=== PATIENT | female | born 1980 | race Caucasian/White ===

== ENCOUNTER 2016-03-11 12:10 | Emergency (ER) | payer OTHER ==
[~2016-03-11 12:10] MED LIST: ACET50TA PO; ADDE10CA3 PO; ADDE10TA OR; ALLE25CA OR; CETI10TA OR; DIAB5TAB PO; DOCU10CA PO; GLUC500T OR; GLUC850T PO; GLYB5TA PO; IBUP80TA PO; NEXI20CA PO; NUPE1OIN2 PN; PERC5TAB8 OR; PERCOCET PO; PRENTAB55 PO; VICO5TAB OR; VITAPRTA PO; ZOFR8TAB PO; augmentin PO
[2016-03-11] MEDS ORDERED: ONDANSETRON 4 MG ORAL DISINTEGRATING TAB (S0181) As Ordered ONE (12:54)
[2016-03-11] MEDS ORDERED: METOCLOPRAMIDE INJ 10MG/2ML VIAL (J2765) As Ordered ONE (14:13)
--- NOTE | 2016-03-11 15:00 | EDDOCDS ---
Nurse's Notes [facility] Name: Richa Sanders Age: 35 yrs Sex: Female : 1980 Arrival Date: 03/11/2016 Time: 12:10 Bed Family 1 Private MD: BASSAM Cobos Diagnosis: Infectious gastroenteritis and colitis, unspecified Presentation: 03/11 12:21 Presenting complaint: Patient states: she has had nausea, vomiting, diarrhea and kcs cramping since 0300. Adult Sepsis Screening: The patient does not have new or worsening altered mentation. Patient's respiratory rate is less than 22. Systolic blood pressure is greater than 100. Patient has a qSOFA score of 0- Negative Sepsis Screen. Suicide/Homicide risk assessment- the patient denies having any suicidal and/or homicidal ideations and does not present with any other emotional, behavioral or mental health complaints. 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 Transition of care: patient was not received from another setting of care. 12:21 Acuity: WILLIAM Level 3 kcs 12:21 Method Of Arrival: Walkin/Carried/Asstd kcs Triage Assessment: 12:24 General: Appears comfortable, well developed, well nourished, well groomed, Behavior is kcs cooperative, pleasant. Pain: Location: abdomen Pain currently is 5 out of 10 on a pain scale. Pt Declines HIV testing. Neurological: Level of Consciousness is awake, alert. Respiratory: Airway is patent Respiratory effort is even, unlabored, Respiratory pattern is regular, symmetrical. Derm: Skin is intact, is healthy with good turgor, Skin is dry, Skin is normal. 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 omeprazole 20 mg Oral cpDR 1 cap once daily 2. Zyrtec 10 mg Oral tab 1 tab once daily 3. Adderall XR 20 mg Oral cp24 1 cap once daily doesn't take it every day 4. Albuterol Inhl 2 puffs every 4 hours as needed - PMHx: GERD; ADD; Asthma; Seasonal Allergies; - PSHx: Cholecystectomy; - Social history: Smoking status: Patient states was never smoker of tobacco. No barriers to communication noted, The patient speaks fluent Urdu. - Family history: Not pertinent. - : The pt / caregiver states he / she is not on anticoagulants. Home medication list is obtained from the patient. - Exposure Risk Screening:: None identified. Recent exposure to and child are sick. Screenin:11 Infection Control. elp 13:00 Screening information is obtained from the patient. Fall risk: No risks identified. mk4 Assistance ADL's: requires no assistance with activities of daily living. Abuse/DV Screen: The patient / caregiver reports he/she is: not in a situation that causes fear, pain or injury. Nutritional screening: No deficits noted. Advance Directives: Currently, there is no health care proxy. There is no active DNR order. There is no living will. There is no Power of Cathode Ray Tube Assembler. Advance directive information has not previously been placed in an [facility] medical record. Further advance directive information is declined. home support is adequate. Assessment: 13:00 General: Appears in no apparent distress, comfortable. GI: Abd is soft and non tender mk4 Reports vomiting, since this am , hasnt vomited since arrival. Derm: Skin is intact, is healthy with good turgor. 14:17 General: Appears ill. Pain: Location: abdomen Quality of pain is described as crampy. mcp GI: Reports nausea. 14:58 General: Tolerated fluids po. [facility] Vital Signs: 12:12 BP 114 / 82; Pulse 117; Resp 20; Temp 98.9; Pulse Ox 95% on R/A; Weight 99.79 kg (R); elp Height 5 ft. 7 in. (170.18 cm) (R); Pain 5/10; 14:55 BP 114 / 59; Pulse 98; Resp 18; Temp 98.3(O); Pulse Ox 96% on R/A; Pain 2/10; jml1 12:12 Body Mass Index 34.46 (99.79 kg, 170.18 cm) [facility] Vitals: 12:12 Log In Time: March 11, 2016 at 12:10. [facility] ED Course: 12:11 Patient visited by Radha Chase PCA. elp 12:11 Chandrika [facility] is Private Physician. elp 12:11 Patient moved to Waiting elp 12:12 Patient visited by Radha Chase PCA. elp 12:13 Patient moved to Pre RCE elp 12:22 Triage Initiated kcs 12:39 Selena Costa MD is Attending Physician. sd1 12:39 Patient visited by Selena Costa MD. sd1 12:39 Patient moved to Family 1 ck1 12:51 Patient visited by Niecy Schrader, MIQUEL. mk4 13:00 The patient / caregiver is instructed regarding the plan of care and ED course. mk4 13:21 Patient visited by Niecy Schrader RN. mk4 13:40 [facility] Payment Agreement was scanned into [employer] and attached to record. jp5 14:12 Patient visited by Niecy Schrader RN. mk4 14:18 Patient visited by Maria Teresa Davis RN. [facility] 14:39 Cobos, [facility] is Referral Physician. sd1 14:56 Patient visited by Cecilio Sahni. jml1 14:57 No IV's were initiated during this patient's visit. No procedures done that require mcp assistance. Administered Medications: 12:59 Drug: Ondansetron ODT 4 mg [ondansetron 4 mg disintegrating tablet (1 tabs)] Route: PO; mk4 14:17 Drug: Metoclopramide 10 mg [metoclopramide 5 mg/mL injection solution (2 mL)] Route: mcp IM; Site: right deltoid; Order Results: There are currently no results for this order. Outcome: 14:39 Discharge ordered by Provider. sd1 14:58 Discharge Assessment: patient administered narcotics - no. The following High Risk [facility] Discharge criteria are identified: None. Discharged to home ambulatory, with family. Condition: stable. Discharge instructions given to patient, Instructed on discharge instructions, follow up and referral plans. medication usage, diet, Demonstrated understanding of instructions, medications, Pt was receptive of discharge instructions/ teaching. Prescriptions given X 1. No special radiology studies were completed. Property sent home with patient. 14:59 Patient left the ED. [facility] Signatures: Selena Costa MD MD sd1 Krista Guadarrama RN RN kcs Peters, Mary, RN RN mcp Kim-Ashcraft, Connie, RN RN ck1 Cecilio Sahni jml1 Patchen, Radha, FOOD MIXER REPAIRER FOOD MIXER REPAIRER elp Niecy Schrader, MIQUEL RN [id number] Segun Araujo jp5 MTDD
--- NOTE | 2016-03-11 15:00 | EDDOCDS ---
Physician Documentation [facility] Name: Richa Sanders Age: 35 yrs Sex: Female : 1980 Arrival Date: 03/11/2016 Time: 12:10 Bed Family 1 Private MD: BASSAM Cobos Disposition: 03/11/16 14:39 Discharged to Home/Self Care. Impression: Infectious gastroenteritis and colitis, unspecified. - Condition is Stable. - Discharge Instructions: Food Choices to Help Relieve Diarrhea, Adult, Clear Liquid Diet, Viral Gastroenteritis, Viral Gastroenteritis, [id number]. - Prescriptions for ZOFRAN ODT 4 mg - dissolve 1 tablet by ORAL route 4 times per day As needed do not chew, do not swallow whole; 10 tablet. - Medication Reconciliation, Local Pharmacy Hours form. - Follow up: BASSAM Cobos; When: 1 - 2 days. - Problem is new. - Symptoms have improved. Historical: - Allergies: No known drug Allergies; - Home Meds: 1. omeprazole 20 mg Oral cpDR 1 cap once daily 2. Zyrtec 10 mg Oral tab 1 tab once daily 3. Adderall XR 20 mg Oral cp24 1 cap once daily doesn't take it every day 4. Albuterol Inhl 2 puffs every 4 hours as needed - PMHx: GERD; ADD; Asthma; Seasonal Allergies; - PSHx: Cholecystectomy; - Social history: Smoking status: Patient states was never smoker of tobacco. No barriers to communication noted, The patient speaks fluent Spanish. - Family history: Not pertinent. - : The pt / caregiver states he / she is not on anticoagulants. Home medication list is obtained from the patient. - Exposure Risk Screening:: None identified. Recent exposure to and child are sick. 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 7 in. (170.18 cm) (R); Pain 5/10; 14:55 BP 114 / 59; Pulse 98; Resp 18; Temp 98.3(O); Pulse Ox 96% on R/A; Pain 2/10; jml1 12:12 Body Mass Index 34.46 (99.79 kg, 170.18 cm) elp MDM: 12:50 Ondansetron ODT Oral Disintegrating Tablet 4 mg PO once ordered. sd1 12:50 Fluid Challenge ordered. sd1 13:40 [facility] Payment Agreement was scanned into [employer] and attached to record. jp5 13:40 Financial registration complete. jp5 14:05 Metoclopramide 10 mg IM once ordered. sd1 Administered Medications: 12:59 Drug: Ondansetron ODT 4 mg [ondansetron 4 mg disintegrating tablet (1 tabs)] Route: PO; mk4 14:17 Drug: Metoclopramide 10 mg [metoclopramide 5 mg/mL injection solution (2 mL)] Route: mcp IM; Site: right deltoid; Signatures: Selena Costa MD MD sd1 Krista Guadarrama RN Maria Teresa Rios RN RN [facility] Niecy Schrader RN RN 4 Segun Araujo jp5 The chart was reviewed and I authenticate all verbal orders and agree with the evaluation and treatment provided.Attachments: 13:40 [facility] Payment Agreement jp5 MTDD
--- NOTE | 2016-03-13 16:00 | EDDOCDS ---
Physician Documentation [facility] Name: Richa Sanders Age: 35 yrs Sex: Female : 1980 Arrival Date: 03/11/2016 Time: 12:10 Bed Family 1 Private MD: BASSAM Cobos Disposition: 03/11/16 14:39 Discharged to Home/Self Care. Impression: Infectious gastroenteritis and colitis, unspecified. - Condition is Stable. - Discharge Instructions: Food Choices to Help Relieve Diarrhea, Adult, Clear Liquid Diet, Viral Gastroenteritis, Viral Gastroenteritis, [id number]. - Prescriptions for ZOFRAN ODT 4 mg - dissolve 1 tablet by ORAL route 4 times per day As needed do not chew, do not swallow whole; 10 tablet. - Medication Reconciliation, Local Pharmacy Hours form. - Follow up: BASSAM Cobos; When: 1 - 2 days. - Problem is new. - Symptoms have improved. Historical: - Allergies: No known drug Allergies; - Home Meds: 1. omeprazole 20 mg Oral cpDR 1 cap once daily 2. Zyrtec 10 mg Oral tab 1 tab once daily 3. Adderall XR 20 mg Oral cp24 1 cap once daily doesn't take it every day 4. Albuterol Inhl 2 puffs every 4 hours as needed - PMHx: GERD; ADD; Asthma; Seasonal Allergies; - PSHx: Cholecystectomy; - Social history: Smoking status: Patient states was never smoker of tobacco. No barriers to communication noted, The patient speaks fluent Swedish. - Family history: Not pertinent. - : The pt / caregiver states he / she is not on anticoagulants. Home medication list is obtained from the patient. - Exposure Risk Screening:: None identified. Recent exposure to and child are sick. 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 7 in. (170.18 cm) (R); Pain 5/10; 14:55 BP 114 / 59; Pulse 98; Resp 18; Temp 98.3(O); Pulse Ox 96% on R/A; Pain 2/10; jml1 12:12 Body Mass Index 34.46 (99.79 kg, 170.18 cm) elp MDM: 12:50 Ondansetron ODT Oral Disintegrating Tablet 4 mg PO once ordered. sd1 12:50 Fluid Challenge ordered. sd1 13:40 [facility] Payment Agreement was scanned into [employer] and attached to record. jp5 13:40 Financial registration complete. jp5 14:05 Metoclopramide 10 mg IM once ordered. sd1 03/12 09:21 T-Sheet-- Draft Copy was scanned into [employer] and attached to record. gb Administered Medications: 03/11 12:59 Drug: Ondansetron ODT 4 mg [ondansetron 4 mg disintegrating tablet (1 tabs)] Route: PO; mk4 14:17 Drug: Metoclopramide 10 mg [metoclopramide 5 mg/mL injection solution (2 mL)] Route: mcp IM; Site: right deltoid; Signatures: Selena Costa MD MD sd1 Krista Guadarrama RN RN Maria Teresa Guerrier RN RN Yadi Bose, Reg Reg Niecy Rehman, RN RN mk4 Segun Araujo jp5 The chart was reviewed and I authenticate all verbal orders and agree with the evaluation and treatment provided.Attachments: 13:40 [facility] Payment Agreement jp5 03/12 09:21 T-Sheet-- Draft Copy gb Chart Complete MTDD
--- NOTE | 2016-03-13 16:00 | EDDOCDS ---
Nurse's Notes [facility] Name: Richa Sanders Age: 35 yrs Sex: Female : 1980 Arrival Date: 03/11/2016 Time: 12:10 Bed Family 1 Private MD: BASSAM Cobos Diagnosis: Infectious gastroenteritis and colitis, unspecified Presentation: 03/11 12:21 Presenting complaint: Patient states: she has had nausea, vomiting, diarrhea and kcs cramping since 0300. Adult Sepsis Screening: The patient does not have new or worsening altered mentation. Patient's respiratory rate is less than 22. Systolic blood pressure is greater than 100. Patient has a qSOFA score of 0- Negative Sepsis Screen. Suicide/Homicide risk assessment- the patient denies having any suicidal and/or homicidal ideations and does not present with any other emotional, behavioral or mental health complaints. 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 Transition of care: patient was not received from another setting of care. 12:21 Acuity: WILLIAM Level 3 kcs 12:21 Method Of Arrival: Walkin/Carried/Asstd kcs Triage Assessment: 12:24 General: Appears comfortable, well developed, well nourished, well groomed, Behavior is kcs cooperative, pleasant. Pain: Location: abdomen Pain currently is 5 out of 10 on a pain scale. Pt Declines HIV testing. Neurological: Level of Consciousness is awake, alert. Respiratory: Airway is patent Respiratory effort is even, unlabored, Respiratory pattern is regular, symmetrical. Derm: Skin is intact, is healthy with good turgor, Skin is dry, Skin is normal. 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 omeprazole 20 mg Oral cpDR 1 cap once daily 2. Zyrtec 10 mg Oral tab 1 tab once daily 3. Adderall XR 20 mg Oral cp24 1 cap once daily doesn't take it every day 4. Albuterol Inhl 2 puffs every 4 hours as needed - PMHx: GERD; ADD; Asthma; Seasonal Allergies; - PSHx: Cholecystectomy; - Social history: Smoking status: Patient states was never smoker of tobacco. No barriers to communication noted, The patient speaks fluent Kinyarwanda. - Family history: Not pertinent. - : The pt / caregiver states he / she is not on anticoagulants. Home medication list is obtained from the patient. - Exposure Risk Screening:: None identified. Recent exposure to and child are sick. Screenin:11 Infection Control. elp 13:00 Screening information is obtained from the patient. Fall risk: No risks identified. mk4 Assistance ADL's: requires no assistance with activities of daily living. Abuse/DV Screen: The patient / caregiver reports he/she is: not in a situation that causes fear, pain or injury. Nutritional screening: No deficits noted. Advance Directives: Currently, there is no health care proxy. There is no active DNR order. There is no living will. There is no Power of Communications Advisor. Advance directive information has not previously been placed in an [facility] medical record. Further advance directive information is declined. home support is adequate. Assessment: 13:00 General: Appears in no apparent distress, comfortable. GI: Abd is soft and non tender mk4 Reports vomiting, since this am , hasnt vomited since arrival. Derm: Skin is intact, is healthy with good turgor. 14:17 General: Appears ill. Pain: Location: abdomen Quality of pain is described as crampy. mcp GI: Reports nausea. 14:58 General: Tolerated fluids po. [facility] Vital Signs: 12:12 BP 114 / 82; Pulse 117; Resp 20; Temp 98.9; Pulse Ox 95% on R/A; Weight 99.79 kg (R); elp Height 5 ft. 7 in. (170.18 cm) (R); Pain 5/10; 14:55 BP 114 / 59; Pulse 98; Resp 18; Temp 98.3(O); Pulse Ox 96% on R/A; Pain 2/10; jml1 12:12 Body Mass Index 34.46 (99.79 kg, 170.18 cm) [facility] Vitals: 12:12 Log In Time: March 11, 2016 at 12:10. [facility] ED Course: 12:11 Patient visited by Radha Chase PCA. elp 12:11 Chandrika [facility] is Private Physician. elp 12:11 Patient moved to Waiting elp 12:12 Patient visited by Radha Chase PCA. elp 12:13 Patient moved to Pre RCE elp 12:22 Triage Initiated kcs 12:39 Selena Costa MD is Attending Physician. sd1 12:39 Patient visited by Selena Costa MD. sd1 12:39 Patient moved to Family 1 ck1 12:51 Patient visited by Niecy Schrader RN. mk4 13:00 The patient / caregiver is instructed regarding the plan of care and ED course. mk4 13:21 Patient visited by Niecy Schrader RN. mk4 13:40 [facility] Payment Agreement was scanned into [employer] and attached to record. jp5 14:12 Patient visited by Niecy Schrader RN. mk4 14:18 Patient visited by Maria Teresa Davis RN. [facility] 14:39 Chandrika [facility] is Referral Physician. sd1 14:56 Patient visited by Cecilio Sahni. jml1 14:57 No IV's were initiated during this patient's visit. No procedures done that require mcp assistance. 03/12 09:21 T-Sheet-- Draft Copy was scanned into [employer] and attached to record. gb Administered Medications: 03/11 12:59 Drug: Ondansetron ODT 4 mg [ondansetron 4 mg disintegrating tablet (1 tabs)] Route: PO; mk4 14:17 Drug: Metoclopramide 10 mg [metoclopramide 5 mg/mL injection solution (2 mL)] Route: mcp IM; Site: right deltoid; Order Results: There are currently no results for this order. Outcome: 14:39 Discharge ordered by Provider. sd1 14:58 Discharge Assessment: patient administered narcotics - no. The following High Risk [facility] Discharge criteria are identified: None. Discharged to home ambulatory, with family. Condition: stable. Discharge instructions given to patient, Instructed on discharge instructions, follow up and referral plans. medication usage, diet, Demonstrated understanding of instructions, medications, Pt was receptive of discharge instructions/ teaching. Prescriptions given X 1. No special radiology studies were completed. Property sent home with patient. 14:59 Patient left the ED. [facility] Signatures: Selena Costa MD MD sd1 Krista Guadarrama RN RN kcs Peters, Mary, RN RN [facility] Yadi Hernández, Reg Reg kaitlynn Moore,MIQUEL Saenz RN ck1 Cecilio Sahni jml1 Radha Chase, BORE MILL OPERATOR BORE MILL OPERATOR elp Niecy Schrader, RN RN mk4 Segun Araujo jp5 Chart Complete MTDD
--- NOTE | 2016-03-13 16:00 | EDDOCDS ---
Physician Documentation [facility] Name: Richa Sanders Age: 35 yrs Sex: Female : 1980 Arrival Date: 03/11/2016 Time: 12:10 Bed Family 1 Private MD: BASSAM Cobos Disposition: 03/11/16 14:39 Discharged to Home/Self Care. Impression: Infectious gastroenteritis and colitis, unspecified. - Condition is Stable. - Discharge Instructions: Food Choices to Help Relieve Diarrhea, Adult, Clear Liquid Diet, Viral Gastroenteritis, Viral Gastroenteritis, [id number]. - Prescriptions for ZOFRAN ODT 4 mg - dissolve 1 tablet by ORAL route 4 times per day As needed do not chew, do not swallow whole; 10 tablet. - Medication Reconciliation, Local Pharmacy Hours form. - Follow up: BASSAM Cobos; When: 1 - 2 days. - Problem is new. - Symptoms have improved. Historical: - Allergies: No known drug Allergies; - Home Meds: 1. omeprazole 20 mg Oral cpDR 1 cap once daily 2. Zyrtec 10 mg Oral tab 1 tab once daily 3. Adderall XR 20 mg Oral cp24 1 cap once daily doesn't take it every day 4. Albuterol Inhl 2 puffs every 4 hours as needed - PMHx: GERD; ADD; Asthma; Seasonal Allergies; - PSHx: Cholecystectomy; - Social history: Smoking status: Patient states was never smoker of tobacco. No barriers to communication noted, The patient speaks fluent Yakut. - Family history: Not pertinent. - : The pt / caregiver states he / she is not on anticoagulants. Home medication list is obtained from the patient. - Exposure Risk Screening:: None identified. Recent exposure to and child are sick. 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 7 in. (170.18 cm) (R); Pain 5/10; 14:55 BP 114 / 59; Pulse 98; Resp 18; Temp 98.3(O); Pulse Ox 96% on R/A; Pain 2/10; jml1 12:12 Body Mass Index 34.46 (99.79 kg, 170.18 cm) elp MDM: 12:50 Ondansetron ODT Oral Disintegrating Tablet 4 mg PO once ordered. sd1 12:50 Fluid Challenge ordered. sd1 13:40 [facility] Payment Agreement was scanned into [employer] and attached to record. jp5 13:40 Financial registration complete. jp5 14:05 Metoclopramide 10 mg IM once ordered. sd1 03/12 09:21 T-Sheet-- Draft Copy was scanned into [employer] and attached to record. gb Administered Medications: 03/11 12:59 Drug: Ondansetron ODT 4 mg [ondansetron 4 mg disintegrating tablet (1 tabs)] Route: PO; mk4 14:17 Drug: Metoclopramide 10 mg [metoclopramide 5 mg/mL injection solution (2 mL)] Route: mcp IM; Site: right deltoid; Signatures: Selena Costa MD MD sd1 Krista Guadarrama RN RN Maria Teresa Guerrier RN RN Yadi Bose, Reg Reg Niecy Rehman, RN RN mk4 Segun Araujo jp5 The chart was reviewed and I authenticate all verbal orders and agree with the evaluation and treatment provided.Attachments: 13:40 [facility] Payment Agreement jp5 03/12 09:21 T-Sheet-- Draft Copy gb Chart Complete MTDD
== END 2016-03-11 14:59 | disposition home or self-care (01) ==
LOC: M ED 12:10
DX: R11.2 Nausea with vomiting, unspecified (principal); R19.7 Diarrhea, unspecified; K21.9 Gastro-esophageal reflux disease without esophagitis; F90.0 Attention-deficit hyperactivity disorder, predominantly inattentive type; J45.909 Unspecified asthma, uncomplicated; Z90.49 Acquired absence of other specified parts of digestive tract; Z79.899 Other long term (current) drug therapy
CPT/HCPCS: 96372; 99283; J2765

== ENCOUNTER → 2016-06-01 | Outpatient (CLI) | payer OTHER, SELFPAY ==
[~2016-06-01] MED LIST changes: +METHACHOLINE KIT (J7674) INH ONE
--- NOTE | 2016-06-01 09:35 | PFTRPT ---
METHACHOLINE CHALLENGE REPORT: ORDERING PROVIDER: JAEL Ruiz DATE OF SERVICE: 06/01/16 INTERPRETATION: The study was of excellent technical quality. Under protocol, methacholine was administered. At a dose of 0.025 mg (0.125 CDUs), a 50% decline in the FEV1 was noted. Flow rates did return to baseline post bronchodilator administration. IMPRESSION: Positive methacholine challenge study. MTDD
== END ==
LOC: M CARPUL 08:53
PROVIDERS: ATTEND Nurse Practitioner Adult Health
DX: R05 Cough (principal); R94.2 Abnormal results of pulmonary function studies

== ENCOUNTER → 2016-06-17 | Outpatient (CLI) | payer OTHER ==
[~2016-06-17] MED LIST changes: -METHACHOLINE KIT (J7674) INH ONE
--- NOTE | 2016-06-18 03:00 | REP ---
Clinical: Shortness of breath . Comparison: 01/19/2014 . Technique: PA and lateral. Findings: The mediastinum and cardiac silhouette are normal. The lung batista are clear and without acute consolidation, effusion, or pneumothorax. The skeletal structures are intact and normal. Impression: 1. No acute cardiopulmonary process. Signed by Jv Yao MD 06/18/2016 02:52 A
== END ==
LOC: M RAD 12:59
PROVIDERS: ATTEND Nurse Practitioner Adult Health
DX: R06.02 Shortness of breath (principal)

== ENCOUNTER → 2016-09-24 | Outpatient (CLI) | payer OTHER ==
--- NOTE | 2016-09-24 17:58 | REP ---
Chest x-ray: Two views: History: Mild intermittent asthma. Comparison chest x-ray: 06/17/2016. Findings: The lungs are well inflated and clear. The pleural angles are sharp. Cardiomediastinal silhouette and bony thorax are unremarkable. Impression: Negative chest x-ray. Signed by Ari Pina MD 09/24/2016 07:39 P
== END ==
LOC: M RAD 15:02 → M LAB 15:02
PROVIDERS: ATTEND Nurse Practitioner Adult Health
DX: J45.20 Mild intermittent asthma, uncomplicated (principal)

== ENCOUNTER 2017-09-11 19:49 | Emergency (ER) | payer OTHER ==
[2017-09-11 20:50] LABS: KETONE, URINE AUTO RFX NEGATIVE (NEGATIVE); LEUKOCYTE ESTERASE UR AUTO RFX NEGATIVE (NEGATIVE); NITRITE, URINE AUTO RFX NEGATIVE (NEGATIVE); RBC, URINE AUTO RFX 0 /HPF (0-3); SPECIFIC GRAVITY UR AUTO RFX 1.006 (1.002-1.035); SQUAM EPITHELIAL CELL UR AURFX 0 /HPF (0-6); WBC, URINE AUTO RFX 0 /HPF (0-3)
[2017-09-11] MEDS: METOCLOPRAMIDE INJ 10MG/2ML VIAL (J2765) IV (20:59)
[2017-09-11] MEDS: NS 1,000 ML IV (20:59)
[2017-09-11 21:06] LABS: HEMATOCRIT 41.3 % (36.0-47.0); MEAN CORPUSCULAR HEMOGLOBIN 29.2 pg (27.0-33.0); MEAN CORPUSCULAR HGB CONC 33.9 g/dl (32.0-36.5); MEAN CORPUSCULAR VOLUME 86.2 fl (80.0-96.0); PLATELET COUNT, AUTOMATED 330 10^3/uL (150-450); RED BLOOD COUNT 4.79 10^6/uL (4.00-5.40); RED CELL DISTRIBUTION WIDTH 13.2 % (11.5-14.5)
[2017-09-11 21:14] LABS: ADD MANUAL DIFFER YES; DIFF SLIDE NUMBER 158; POSITIVE DIFF POS FLAG
[2017-09-11 21:34] LABS: EOSINOPHILS 4 % (0-5); LYMPHOCYTES 32 % (16-52); MONOCYTES 6 % (0-8); NEUTROPHILS 58 % (35-75); PLATELET ESTIMATE NORMAL (NORMAL)
[2017-09-11 21:38] LABS: ANION GAP 10 MEQ/L (8-16); BLOOD UREA NITROGEN 10 MG/DL (7-18); CALCIUM LEVEL 8.6 MG/DL (8.5-10.1); CARBON DIOXIDE LEVEL 23 MEQ/L (21-32); CHLORIDE LEVEL 105 MEQ/L (98-107); CREATININE FOR GFR 1.11 MG/DL (0.55-1.30); GLOMERULAR FILTRATION RATE 58.9 (>60); GLUCOSE, FASTING 171 MG/DL (70-100); HCG, SERUM QUANTITATIVE 41482 MIU/ML; POTASSIUM SERUM 3.6 MEQ/L (3.5-5.1); SODIUM LEVEL 138 MEQ/L (136-145)
== END 2017-09-11 22:17 | disposition home or self-care (01) ==
LOC: M ED 19:49
DX: O24.419 Gestational diabetes mellitus in pregnancy, unspecified control (principal); R73.9 Hyperglycemia, unspecified; O21.9 Vomiting of pregnancy, unspecified; O99.341 Other mental disorders complicating pregnancy, first trimester; F32.9 Major depressive disorder, single episode, unspecified; F41.9 Anxiety disorder, unspecified; O99.611 Diseases of the digestive system complicating pregnancy, first trimester; K21.9 Gastro-esophageal reflux disease without esophagitis; O99.511 Diseases of the respiratory system complicating pregnancy, first trimester; J30.2 Other seasonal allergic rhinitis; Z3A.00 Weeks of gestation of pregnancy not specified
CPT/HCPCS: J2765

== ENCOUNTER → 2017-11-10 | Outpatient (CLI) | payer OTHER | LOC: M EKG 15:27 | DX: O24.112 Pre-existing type 2 diabetes mellitus, in pregnancy, second trimester (principal); E11.9 Type 2 diabetes mellitus without complications; Z3A.14 14 weeks gestation of pregnancy ==

== ENCOUNTER 2018-04-14 14:58 | Inpatient (IN) | payer OTHER ==
[~2018-04-14] VITALS: Ht 170.2 cm; Wt 121.8 kg
[~2018-04-14 14:58] MED LIST changes: -ACET50TA PO; +MAPA500T2 PO; +REGL10TA6 PO
[2018-04-14] MEDS ORDERED: NS 1,000 ML IV SCH (15:15)
[2018-04-14] MEDS ORDERED: LACTATED RINGER'S 1000 ML IV STA (15:15)
[2018-04-14] MEDS ORDERED: INSULIN IV RATE CHANGE DOCUMENTATION ML/HR XX SCH ×2 (15:15→20:15)
[2018-04-14] MEDS ORDERED: LR 1,000 ML IV SCH (15:15)
[2018-04-14 15:16] VITALS: BP 144/77
[2018-04-14] MEDS ORDERED: SING10TA32 PO (15:17)
[2018-04-14] MEDS ORDERED: INSUDET SC (15:17)
[2018-04-14] MEDS ORDERED: CETI10TA PO (15:17)
[2018-04-14] MEDS ORDERED: NOVOINJ3 SUBQ (16:48)
[2018-04-14] MEDS ORDERED: INSULIN HUMAN REGULAR 100 UNITS in NS 99 ML IV SCH ×2 (17:00→20:07)
[2018-04-14 17:08] LABS: HEMATOCRIT 39.4 % (36.0-47.0); HEMOGLOBIN 13.5 g/dl (12.0-15.5); MEAN CORPUSCULAR HEMOGLOBIN 29.9 pg (27.0-33.0); MEAN CORPUSCULAR HGB CONC 34.3 g/dl (32.0-36.5); MEAN CORPUSCULAR VOLUME 87.2 fl (80.0-96.0); PLATELET COUNT, AUTOMATED 248 10^3/uL (150-450); RED BLOOD COUNT 4.52 10^6/uL (4.00-5.40); WHITE BLOOD COUNT 11.5 10^3/uL (4.0-10.0)
[2018-04-14 17:19] VITALS: BP 128/67
[2018-04-14] MEDS ORDERED: ceFAZolin SOD 1 GM in D5W MINI-BAG PLUS 50 ML IV ONE (17:30)
[2018-04-14] MEDS ORDERED: BICITRA 30ML SOLN UDC PO ONE (17:30)
--- NOTE | 2018-04-14 17:33 | REP ---
OB ULTRASOUND: Real-time sonographic evaluation of the gravid uterus is performed utilizing transabdominal technique. There is a single living intrauterine gestation. The estimated gestational age is 38 weeks 1 day. EDC 04/27/2018. Today's measurements demonstrate an estimated weight of 4020 grams which is at the 94th percentile. BPD 93 mm = 37 weeks 6 days, at the 47th percentile. HC 347 mm = 40 weeks 2 days, at the 85th percentile. AC 380 mm = 42 weeks 0 days, over 95th percentile. Femur length 72 mm = 36 weeks 4 days, at the 29th percentile. HC/AC ratio 0.91 within normal range. Cervix is closed and measures approximately 2.6 cm in length. heart rate 135 beats per minute. Amniotic fluid is upper limits of normal, DONOVAN 22.5 with a normal range of 7.3 to 23.8. Biophysical profile score is 8/8. SD ratio is 2.77 is slightly above normal range of 1.6 to 2.6. RI 0.64. Visualized anatomy was the lateral ventricles, upper lip, four-chamber heart, ventricular outflow tracts, stomach and, three-vessel cord, kidneys, bladder and spine, which are all grossly unremarkable. Feta position is vertex. Placenta is fundal and on the left, grade 2-3 with no previa or abruption. Electronically Signed by En Ceron MD 04/17/2018 12:17 P
--- NOTE | 2018-04-14 17:45 | HPEPDOC ---
Obstetrical History & Physical General Date of Admission Apr 14, 2018 at 14:58 History of Present Illness 36 y/o at 38+1 by 8 wk US with no LOF/VB/ctx's. Pos FM. Seen in clinic today with several late decels noted on NST. Delivery indicated. Preg c/b Class B DM on 130 units insulin total in 24 hours. Questionable cont rol, noncompliance suspected. Polyhydramnios on most US's in the last 1-2 months. H/O shoulder dystocia and NICU t-[facility] to [place] with first baby in 2014, also clavicle fracture found 1 month after delivery. Undesired fertility. Information Provided By: Patient Care Care: Good Care Dating Final EDC by: 1st trimester (US) Past Medical History Past Obstetrical History : Type of Delivery: Spontaneous Vaginal Del. 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 Past Medical History Medical History asthma on Singulair, Cetirizine, albuterol prn, this only needed X2 whole Class B DM Surgical History: Gallbladder Family History Significant Family History: No pertinent family hx Social History Marital Status: Family situation: Spouse/partner home Psychosocial History: No pertinent psych hx * Smoker: non-smoker Alcohol: Denies Drugs: denies Abuse Violence Screening Have you been hit/kicked/slapp: No Have you been sexually assault: No Imunizations Tdap status: current Influenza Status: current Allergies Coded Allergies: SEASONAL ALLERGIES (Unverified Allergy, Mild, 09/09/14) No Known Drug Allergy (Verified Allergy, Unknown, 05/12/12) Medications Scheduled Cetirizine HCl (Cetirizine HCl) 10 Mg Tab, 10 MG PO DAILY for allergy symptoms Insulin Aspart (Novolog Flexpen) 100 Unit/Ml Inj, 30 UNITS SUBQ QAM Insulin Detemir (Levemir) 1 Units/0.01 Ml Susp, 30 UNITS SC BID Montelukast Sodium (Singulair) 10 Mg Tab, 10 MG PO DAILY Multivit/Min/Pren/Fol Ac/Iron ( Rx) 1 Tab Tab, 1 TAB PO DAILY for NUTRITIONAL SUPPORT Physical Examination Physical Examination GENERAL: Alert and oriented times three. ABDOMEN: Gravid and non-tender to touch. FETUS: Is vertex (VTX) by ultrasound. HEART RATE: Regular rate and rhythm. LUNGS: Clear to auscultation (CTA). EXTREMITIES: No edema. No clonus. Ultrasound done at beginning of admission shows EFW 94%ile, 4020 gm (larger than first baby), BPP 8/8, S/D 2.77 (slightly elevated), DONOVAN also high Laboratory Data 24H LABS Laboratory Tests 2 04/14/18 16:14: Serology Scanned Report Hepatitis B Testing 04/14/18 16:35: Bedside Glucose (Misc Panel) 113H 04/14/18 16:43: Nucleated Red Blood Cells % (auto) 0.0 CBC/BMP Laboratory Tests 04/14/18 16:43 Red Blood Count 4.52, Mean Corpuscular Volume 87.2, Mean Corpuscular Hemoglobin 29.9, Mean Corpuscular Hemoglobin Concent 34.3, Red Cell Distribution Width 14.2 Urine Culture: No Growth Pertinent Laboratoy Data Blood Type: B+ RBC Antibody Screen: Negative HIV: Negative Hepatitis B: Negative Hepatitis C: Unknown Rapid Plasma Reagin: Nonreactive Rubella: Immune Varicella: Nonreactive (nonimmune) Chlamydia/Gonorrhea: Negative Group B Streptococcus: Negative Quad Screen Test: Declined Cystic Fibrosis: Declined Glucose Tolerance Test: 239 Diag/Inter Therapy Saw MFM and got appropr monthly growth scans, last grth scan was on day of admit, prior to that was 25FEB that showed DONOVAN 33 cm and 90%ile Anatomy Ultrasound Placenta Location: Posterior Normal Anatomy: Yes Placenta Previa: No Vaginal Examination Dilation: None Effacement: 50% Station: -3 Cervical Consistency: Firm Cervical Position: Posterior Presentation: Cephalic presentation Assessment Variability: Moderate Accelerations: Positive Decelerations: None (no decels on L&D, in the clinic had multiple late decels) Tocometer Contractions: Yes Frequency: irregular Strength: palpated as mild Assessment/Plan Assessment 38+1 indicated delivery. With exam and baby not remotely in the pelvis and h/o shoulder dystocia with injury and with her uncontrolled DM, I rec primary delivery, desires a BTL. Informed consent obtained. H/O asthma noted. Plan on sliding scale insulin in PACU and first 1-2 days postop, then will likely start on 1/3 of current dose insulin. Ancef 3 gm preop due to obesity. Plan Admit and orient. Helper Animal Laboratory and consent. Diet: NPO Group B Streptococcus (GBS) neg Labs and intravenous (IV) per unit protocol. To OR after anesthesia/OR team can be assembled Sessions MD QUEZADA,VAISHALI Alvarez MD Apr 14, 2018 17:45
[2018-04-14] MEDS ORDERED: OXYTOCIN INJ 10 UNITS/ML VIAL (J2590) As Ordered ONE ×2 (18:17→18:48)
[2018-04-14] MEDS ORDERED: MORPHINE PRES-FREE INJ 10 MG/10 ML VIAL (J2274) As Ordered ONE (18:17)
[2018-04-14 18:19] VITALS: BP 120/72
[2018-04-14] MEDS ORDERED: ONDANSETRON 4MG/2ML VIAL (J2405) IV PRN ×2 (18:33→20:30)
[2018-04-14] MEDS ORDERED: NALBUPHINE HCL 10 MG/ML AMP (J2300) IV PRN ×2 (18:33→20:45)
[2018-04-14] MEDS ORDERED: NALOXONE INJ 0.4 MG/1 ML VIAL (J2310) IV PRN ×2 (18:33)
[2018-04-14] MEDS ORDERED: METOCLOPRAMIDE INJ 10MG/2ML VIAL (J2765) IV PRN ×2 (18:33→20:00)
[2018-04-14] MEDS ORDERED: ONDANSETRON 4MG/2ML VIAL (J2405) As Ordered ONE (18:49)
[2018-04-14] MEDS ORDERED: KETOROLAC 60 MG/2 ML VIAL (J1885) As Ordered ONE ×2 (18:49→19:31)
[2018-04-14] MEDS ORDERED: fentaNYL 100 MCG/2 ML INJECTION (J3010) As Ordered ONE ×2 (19:20→19:29)
[2018-04-14] MEDS ORDERED: ePHEDrine SULFATE 25 MG/5 ML(5MG/ML) SYRINGE As Ordered ONE (19:41)
[2018-04-14] MEDS ORDERED: PHENYLephrine HCL 500 MCG/5 ML (100MCG/ML) SYRINGE (J2370) As Ordered ONE (19:41)
[2018-04-14] MEDS ORDERED: OXYTOCIN DRIP 30 UNITS in APPROPRIATE DILUENT 1 EA IV SCH (19:58)
[2018-04-14] MEDS ORDERED: MEASLES,MUMPS,RUBELLA VACCINE INJ (MMR-II) (90707) SC SCH (20:00)
[2018-04-14] MEDS ORDERED: PERCOCET 5MG/325MG TAB PO PRN (20:00)
[2018-04-14] MEDS ORDERED: RHOGAM 300 MCG (1500 IU) INJ (J2790) IM SCH (20:00)
[2018-04-14] MEDS ORDERED: OXYTOCIN 30 UNITS IN 0.9% NaCl 500ML IV BAG (J2590) As Ordered ONE (20:09)
[2018-04-14] MEDS ORDERED: NORCO, ANEXSIA 5/325MG TABLET (HYDROcodone/ACETAMINOPHEN) PO PRN (20:30)
[2018-04-14] MEDS ORDERED: fentaNYL 100 MCG/2 ML INJECTION (J3010) IV PRN (20:30)
[2018-04-14] MEDS ORDERED: NALBUPHINE HCL 10 MG/ML AMP (J2300) As Ordered ONE (20:43)
[2018-04-14] MEDS: DOCUSATE SODIUM 100 MG CAP PO SCH (21:00)
[2018-04-14 22:45] VITALS: BP 162/73
[2018-04-14 23:15] VITALS: BP 141/72
[2018-04-14 23:45] VITALS: BP 149/72
[2018-04-15] VITALS (9 sets, daily range): BP systolic 119–165; BP diastolic 63–80
[2018-04-15] MEDS: NS 1,000 ML IV SCH ×4 (00:40→20:07)
[2018-04-15] MEDS: KETOROLAC 30 MG/ML VIAL (J1885) IV SCH ×3 (02:21→14:47)
[2018-04-15] MEDS: diphenhydrAMINE INJ 50MG/ML VIAL (J1200) IV PRN ×2 (02:35→09:02)
--- NOTE | 2018-04-15 07:50 | IPNPDOC ---
Text Note Date of Service The patient was seen on 04/15/18. NOTE PLTCS POD1 States feeling well, pain controlled with prescribed meds. Baby bonding and feeding well. No heavy VB. Lochia slowing. Ambulatory. Lira in place. No CP/LP/SOB. Was NPO since surgery so I could get a true fasting this AM, was 78. Overnight in PACU a few hours after surgery was 91. Of note, was on 130 units total of insulin at the end of her , I was expecting to need an insulin drip, but this was not needed. VSSAF NAD A&O Incision bandage clean/dry LE no C/C/E Ut at U-1, firm, appropr tenderness UO adequate CBC this AM pending a/p: Doing well. Cont routine postop/ care. D/C in 48 hours, this MON. Plan on 10 units Levemir and 10 units Novolog with breakfast and 10 units Novolog with dinner and 10 units Levemir QHS with blood sugars fasting and 2 hours postprandial, X4 daily. Lira out after 18 hours with 6 hr DTV. Sessions Georgie HASTINGS, I+O VSGeorgie I+O Laboratory Tests 04/14/18 16:43 Red Blood Count 4.52, Mean Corpuscular Volume 87.2, Mean Corpuscular Hemoglobin 29.9, Mean Corpuscular Hemoglobin Concent 34.3, Red Cell Distribution Width 14.2 Vital Signs Date Time Temp Pulse Resp B/P (MAP) Pulse Ox O2 Delivery O2 Flow Rate FiO2 04/15/18 06:00 97.8 71 18 120/63 (82) 97 I&O- Last 24 Hours up to 6 AM 04/15/18 05:59 Intake Total 1100 ml Output Total 700 ml Balance 400 ml SESSIONS,VAISHALI Alvarez MD Apr 15, 2018 07:50
[2018-04-15 08:25] LABS: HEMATOCRIT 32.3 % (36.0-47.0); MEAN CORPUSCULAR HEMOGLOBIN 29.6 pg (27.0-33.0); MEAN CORPUSCULAR HGB CONC 33.4 g/dl (32.0-36.5); MEAN CORPUSCULAR VOLUME 88.5 fl (80.0-96.0); PLATELET COUNT, AUTOMATED 195 10^3/uL (150-450); RED BLOOD COUNT 3.65 10^6/uL (4.00-5.40)
[2018-04-15 08:32] LABS: HEMOGLOBIN 10.8 g/dl (12.0-15.5)
[2018-04-15] MEDS: HumaLOG INSULIN (NovoLOG) PER UNIT SC SCH ×2 (08:50→17:55)
[2018-04-15] MEDS: LEVEMIR (INSULIN DETEMIR) 1 UNITS/0.01ML SC SCH (08:51)
[2018-04-15] MEDS: MONTELUKAST 10 MG TAB PO SCH (09:00)
[2018-04-15] MEDS: CETIRIZINE (ZyrTEC) 10 MG TAB PO SCH (09:00)
[2018-04-15] MEDS: DOCUSATE SODIUM 100 MG CAP PO SCH ×2 (09:02→21:00)
[2018-04-15] MEDS: ENOXAPARIN 40 MG/0.4 ML SYRINGE (J1650) SC SCH (09:02)
[2018-04-15] MEDS: PRENATAL VITAMINS CHEWABLE TABLET PO SCH (09:02)
--- NOTE | 2018-04-15 13:34 | RO ---
DATE OF PROCEDURE: 04/14/2018 PREOPERATIVE DIAGNOSIS: 38 weeks plus 1 day, remote from delivery, uncontrolled diabetes, history of shoulder dystocia with injury with first baby, feared macrosomia. POSTOPERATIVE DIAGNOSIS: 38 weeks plus 1 day, remote from delivery, uncontrolled diabetes, history of shoulder dystocia with injury with first baby, feared macrosomia. Macrosomia confirmed. PROCEDURE: Primary low transverse section and bilateral tubal ligation. SURGEON: Dr. En Rivera MACHINE CLERICAL VERIFIER: Certified Nurse [employer] Helper Elvia Figueroa who was essential in retraction, delivery of the , and closure of all tissue planes. ANESTHESIA: Spinal. ESTIMATED BLOOD LOSS: 700 mL. DRAINS: Lira catheter with 125 mL of clear at the end of procedure. FLUIDS REPLACED: 2200 mL of lactated Ringer's with 20 of Pitocin in the final bag. ANTIBIOTICS: Ancef 3 grams due to her obesity. SPECIMENS REMOVED: Bilateral fallopian tube segments. FINDINGS: Pfannenstiel skin incision, low transverse uterine incision, copious clear fluid, 10 pounds 6 ounces, 4710 gram female , scores 8 and 8. INDICATIONS: The patient is 38 weeks 1 day and was seen in the clinic on the day of surgery for a routine nonstress test due to her known diagnosis of class B diabetes mellitus. She was noted to have several late decelerations on the monitor and due to her status of 38 plus 1 with known uncontrolled diabetes and late decelerations, it was decided to induce labor. However, upon her initial exam, the cervix was not dilated, and the was not in the pelvis whatsoever. Known polyhydramnios and the infant was not engaged at all. I performed an ultrasound in radiology which showed an estimated weight of 94th percentile and 4020 grams and learned upon further history taking that the first that they had 4 years ago had a shoulder dystocia with a collarbone fracture injury and a long and difficult labor, and the needed to be hospitalized in intensive care unit in [place] for 2 weeks. Due to the uncontrolled diabetes and the fear of significant macrosomia, and the history of the shoulder dystocia with injury, and the fact that she was remote from delivery with the not engaged whatsoever in the pelvis, I recommended a primary delivery and informed consent was obtained. The patient and her both were on board with my reasoning and strongly desired to proceed in the operating room. DESCRIPTION OF OPERATION: The patient was taken to the operating room with an IV in place where a spinal anesthetic was easily obtained. She was placed in the dorsal supine position with leftward tilt, and a Lira catheter was placed. Post spinal heart tones were normal, and she was prepped and draped in a normal sterile fashion. A Pfannenstiel skin incision was carried down to the layer of fascia, which was nicked in the midline and extended bilaterally the extent of the skin incision. The fascial edges were tented up with Amanda clamps and the underlying rectus muscles were dissected off sharply. The rectus muscles were in the midline. Peritoneum was identified, entered bluntly with the surgeon's digit and a peritoneal window was easily created. Bladder blade was placed. Bladder flap was created and a low transverse uterine incision was performed down to the layer of the amnion which was breeched with copious amounts of clear fluid noted to come from the incision. This was drained as much as possible. The infant's head was then elevated and with fundal pressure, we delivered the obviously macrosomic infant. was delivered in good shape with good tone and a spontaneous cry. The cord was clamped times two and cut, and the was showed to the parents and handed off to the waiting resuscitation team. Placenta was delivered with traction and fundal massage and confirmed intact. Uterus was delivered through the skin incision. Several ring forcep clamps were used to obtain hemostasis from several large bleeding varices at the uterine incision, and the uterus was cleared of all clots and debris with two dry sponges. I then closed the uterine incision from left to right with a running locked suture of #0 Vicryl. Hemostasis was achieved and an imbrication stitch of #0 Monocryl from left to right was then performed to good effect. The uterine tone was good and attention was turned to the tubal ligation. On the patient's left, I grasped the fallopian with a Melissa at the mid isthmic portion and created a window with the Bovie and the mesosalpinx underneath. Using #0 plain gut, I then tied off an approximately 1 inch segment and removed the portion of fallopian tube with Metzenbaum scissors. A small amount of cautery was done at each base to ensure hemostasis. All consistent with the [place] method. The procedure was repeated on the patient's right without difficulty in exactly the same manner. Hemostasis was noted from all four operative sites. Irrigation was performed behind the uterus. The uterus was then gently returned to the abdomen and without disrupting the sutures. I lifted each fallopian tube suture site and hemostasis was noted bilaterally. There was no significant blood in either gutter, and the incision was intact with hemostasis confirmed. The peritoneum was then closed from superior to inferior with #2-0 Vicryl without difficulty, and the rectus bellies were inspected, found to be hemostatic. The fascia was then closed from left to right with a running #0 Vicryl without difficulty. The subcutaneous tissue was made to be hemostatic and copiously irrigated, and then reapproximated with #2-0 Vicryl. The skin was closed with a running #4-0 Monocryl from left to right in a subcuticular fashion and an Optifoam dressing was placed over the incision. The patient's legs were frogged, and the uterus was at U +1 but firm, not surprising due to the patient's large pannus, the umbilicus was lower than normal. There was a small amount of bleeding from the cervix and vagina. This was cleared with a bimanual exam. The patient was cleaned off and transferred to the post-anesthesia care unit (PACU) in stable condition. All counts including sponge, needle, and instruments were correct times three.
[2018-04-15] MEDS ORDERED: LEVEMIR (INSULIN DETEMIR) 1 UNITS/0.01ML SC SCH (21:00)
[2018-04-15] MEDS: IBUPROFEN 800 MG TAB PO SCH (21:02)
[2018-04-16 03:00] VITALS: BP 125/60
[2018-04-16] MEDS: NS 1,000 ML IV SCH ×2 (04:07→12:07)
[2018-04-16 06:00] VITALS: BP 129/69
[2018-04-16] MEDS: IBUPROFEN 800 MG TAB PO SCH ×3 (06:30→21:19)
[2018-04-16] MEDS: PRENATAL VITAMINS CHEWABLE TABLET PO SCH (07:47)
[2018-04-16] MEDS: ENOXAPARIN 40 MG/0.4 ML SYRINGE (J1650) SC SCH (07:47)
[2018-04-16] MEDS: MONTELUKAST 10 MG TAB PO SCH (07:47)
[2018-04-16] MEDS: CETIRIZINE (ZyrTEC) 10 MG TAB PO SCH (07:47)
[2018-04-16] MEDS: DOCUSATE SODIUM 100 MG CAP PO SCH ×2 (07:47→21:18)
[2018-04-16] MEDS: PERCOCET 5MG/325MG TAB PO PRN ×3 (07:48→22:52)
[2018-04-16] MEDS: HumaLOG INSULIN (NovoLOG) PER UNIT SC SCH (07:57)
[2018-04-16] MEDS: LEVEMIR (INSULIN DETEMIR) 1 UNITS/0.01ML SC SCH (07:57)
[2018-04-16] MEDS ORDERED: HumaLOG INSULIN (NovoLOG) PER UNIT SC SCH (18:00)
[2018-04-16 18:03] VITALS: BP 118/68
[2018-04-16] MEDS ORDERED: LEVEMIR (INSULIN DETEMIR) 1 UNITS/0.01ML SC SCH (21:00)
[2018-04-17 06:00] VITALS: BP 139/82
[2018-04-17] MEDS: IBUPROFEN 800 MG TAB PO SCH (06:01)
[2018-04-17 07:24] LABS: HEMATOCRIT 29.9 % (36.0-47.0); HEMOGLOBIN 10.1 g/dl (12.0-15.5); MEAN CORPUSCULAR HEMOGLOBIN 29.8 pg (27.0-33.0); MEAN CORPUSCULAR HGB CONC 33.8 g/dl (32.0-36.5); MEAN CORPUSCULAR VOLUME 88.2 fl (80.0-96.0); PLATELET COUNT, AUTOMATED 239 10^3/uL (150-450); RED BLOOD COUNT 3.39 10^6/uL (4.00-5.40); WHITE BLOOD COUNT 11.6 10^3/uL (4.0-10.0)
[2018-04-17] MEDS: LEVEMIR (INSULIN DETEMIR) 1 UNITS/0.01ML SC SCH (07:27)
[2018-04-17] MEDS ORDERED: HumaLOG INSULIN (NovoLOG) PER UNIT SC SCH (08:00)
[2018-04-17] MEDS: ENOXAPARIN 40 MG/0.4 ML SYRINGE (J1650) SC SCH (08:33)
[2018-04-17] MEDS: DOCUSATE SODIUM 100 MG CAP PO SCH (08:33)
--- NOTE | 2018-04-17 08:33 | IPNPDOC ---
Text Note Date of Service The patient was seen on 04/17/18. NOTE PLTCS POD3 States feeling well, pain controlled with prescribed meds although did not realize she could ask for percocet every 4-6 hours. Baby bonding and feeding well. No heavy VB. Lochia slowing. Ambulatory. Voiding. No CP/LP/SOB. VSSAF NAD A&O Incision bandage clean/dry LE no C/C/E Ut at U-2, firm, appropr tenderness a/p: Doing well. Cont routine postop/ care. D/C this morning. Plan on 10 units Levemir and 15 units Novolog with breakfast and 10 units Novolog with dinner and 15 units Levemir QHS for discharge. Sessions VS,Georgie, I+O VSGeorgie, I+O Laboratory Tests 04/17/18 06:49 Red Blood Count 3.39 L, Mean Corpuscular Volume 88.2, Mean Corpuscular Hemoglobin 29.8, Mean Corpuscular Hemoglobin Concent 33.8, Red Cell Distribution Width 14.2 Vital Signs Date Time Temp Pulse Resp B/P (MAP) Pulse Ox O2 Delivery O2 Flow Rate FiO2 04/17/18 06:00 98.3 103 18 139/82 (101) 04/16/18 06:00 100 SESSIONS,VAISHALI Alvarez MD Apr 17, 2018 08:32
[2018-04-17] MEDS: MONTELUKAST 10 MG TAB PO SCH (08:34)
[2018-04-17] MEDS: CETIRIZINE (ZyrTEC) 10 MG TAB PO SCH (08:34)
[2018-04-17] MEDS: PRENATAL VITAMINS CHEWABLE TABLET PO SCH (08:34)
[2018-04-17] MEDS: PERCOCET 5MG/325MG TAB PO PRN (08:34)
--- NOTE | 2018-04-17 08:39 | DS.PDOC ---
Discharge Summary General Date of Admission Apr 14, 2018 at 14:58 Date of Discharge [id number] Discharge Summary ADMITTING DIAGNOSES: Lates on NST, remote from delivery, uncontrolled diabetes, feared macrosomia, h/o shoulder dystocia with injury DISCHARGE DIAGNOSES: Primary based on my recommendation due to admitting diagnoses HOSPITAL COURSE: delivery uncomplicated. Severely macrosomic infant with . course uncomplicated other than needing 50 total units of insulin on discharge. DISCHARGE MEDICATIONS: Motrin, Lanolin, Percocet, Colace, Insulin DISCHARGE INSTRUCTIONS: Nothing in the vagina for 6 weeks. No driving for 2 weeks. No bathing for 4 weeks, shower only. F/U in OBGYN clinic in1-2 weeks for incision check in 6-8 weeks. Sessions MD Vital Signs/I&Os Vital Signs Date Time Temp Pulse Resp B/P (MAP) Pulse Ox O2 Delivery O2 Flow Rate FiO2 04/17/18 06:00 98.3 103 18 139/82 (101) 04/16/18 06:00 100 Laboratory Data Labs 24H Laboratory Tests 2 04/16/18 10:14: Bedside Glucose (Misc Panel) 143H 04/16/18 16:13: Bedside Glucose (Misc Panel) 150H 04/16/18 21:00: Bedside Glucose (Misc Panel) 91 04/17/18 06:00: Bedside Glucose (Misc Panel) 82 04/17/18 06:49: Nucleated Red Blood Cells % (auto) 0.0 CBC/BMP Laboratory Tests 04/17/18 06:49 Red Blood Count 3.39 L, Mean Corpuscular Volume 88.2, Mean Corpuscular Hemoglobin 29.8, Mean Corpuscular Hemoglobin Concent 33.8, Red Cell Distribution Width 14.2 FSBS Laboratory Tests Test 04/16/18 10:14 04/16/18 16:13 04/16/18 21:00 04/17/18 06:00 Range/Units Bedside Glucose (Misc Panel) 143 150 91 82 70-105 MG/DL Discharge Medications Scheduled Cetirizine HCl (Cetirizine HCl) 10 Mg Tab, 10 MG PO DAILY for allergy symptoms, (Reported) Insulin Aspart (Novolog Flexpen) 100 Unit/Ml Inj, 30 UNITS SUBQ QAM, (Reported) Insulin Detemir (Levemir) 1 Units/0.01 Ml Susp, 30 UNITS SC BID, (Reported) Montelukast Sodium (Singulair) 10 Mg Tab, 10 MG PO DAILY, (Reported) Multivit/Min/Pren/Fol Ac/Iron ( Rx) 1 Tab Tab, 1 TAB PO DAILY for NUTRITIONAL SUPPORT, (Reported) Allergies Coded Allergies: SEASONAL ALLERGIES (Unverified Allergy, Mild, 09/09/14) No Known Drug Allergy (Verified Allergy, Unknown, 05/12/12) SESSIONS,VAISHALI Alvarez MD Apr 17, 2018 08:39
[2018-04-17] MEDS ORDERED: ZYRTTAB8 PO (09:32)
[2018-04-17] MEDS ORDERED: IBUP-1114 PO (09:32)
[2018-04-17] MEDS ORDERED: COLA100C5 PO (09:32)
[2018-04-17] MEDS ORDERED: OXYC1TAB23 PO (09:32)
[2018-04-17] MEDS ORDERED: NOVOINJ3 SC ×2 (09:37)
[2018-04-17] MEDS ORDERED: INSUDET SC ×2 (09:40)
--- NOTE | 2018-04-17 13:17 | IPN ---
DATE: 04/16/2018 37-year-old, 2, now para 2, had admission direct from the clinic because of nonreassuring heart tones. Had a primary section and tubal ligation for macrosomic infant female 10 pounds 6 ounces (4710 grams), score of 8 and 8 at one and five, respectively. This lady is an against medical advice (AMA) who is a class B diabetic, was on 130 units of insulin, not really well controlled. was not compliant with her insulin or her sugar logs. This morning her blood pressure is 129/69, respirations are 18, pulse 102, temperature is 97.9. Her admitting hemoglobin was 13.5, hematocrit 39.4 and platelets were 248. day #1 hemoglobin 10.8, hematocrit 32.3 and platelets were 195. In monitoring her blood sugars, this morning her a.c. breakfast was 168. She is presently on before food (a.c.) breakfast Levemir 10 and NovoLog 10 at dinner. She takes 10 of NovoLog and at bedtime (h.s.) takes 10 of Levemir. Her glucose fasting on 04/15/2018 was 96 at a.c., lunch was 142, a.c. supper was 142, and then on 04/15/2018 h.s. was 109. We elected to increase her h.s. Levemir to 15 units from 10 leaving the rest the same and monitoring her glucoses on a four times a day basis. The rest the examination unremarkable. She is normocephalic, atraumatic. Neck full range of motion. Pupils equal and reactive to light. Distal pulses symmetric. No evidence of deep venous thrombosis (DVT), pulmonary embolism (PE), or superficial phlebitis. Chest is clear bilaterally bases. No wheezes or rhonchi. Abdomen is soft, quite pendulous. Incision is clean and dry. Bowel sounds are noted. Lochia is normal. Patient is feeling well, is going back and forth to the intensive care unit (NICU) as the baby is still on 3 hour sugars as there is difficult to control baby sugars. We discussed with the patient the reason for increasing her insulin as she still not well controlled and the possibility of alternate changes may encourage throughout the day. We will reevaluate after her lunch and supper values are noted. The patient expressed understanding and there may be limited cooperation as far as compliance.
== END 2018-04-17 13:30 | disposition home or self-care (01) | DRG 784 ==
LOC: M LDI 14:58 → M OBS 22:35
PROVIDERS: ADMIT Obstetrics & Gynecology; ATTEND Obstetrics & Gynecology
PROC: 0UT70ZZ Resection of Bilateral Fallopian Tubes, Open Approach (ICD-10-PCS; 2018-04-14)
PROC: 10D00Z1 Extraction of Products of Conception, Low, Open Approach (ICD-10-PCS; principal; 2018-04-14 18:25)
DX: O24.12 Pre-existing type 2 diabetes mellitus, in childbirth (principal); O40.3XX0 Polyhydramnios, third trimester, not applicable or unspecified; O76 Abnormality in fetal heart rate and rhythm complicating labor and delivery; O36.63X0 Maternal care for excessive fetal growth, third trimester, not applicable or unspecified; Z3A.38 38 weeks gestation of pregnancy; E11.65 Type 2 diabetes mellitus with hyperglycemia; O99.214 Obesity complicating childbirth; E66.9 Obesity, unspecified; Z68.36 Body mass index [BMI] 36.0-36.9, adult; Z79.4 Long term (current) use of insulin; Z91.14 Patient's other noncompliance with medication regimen; Z91.19 Patient's noncompliance with other medical treatment and regimen; Z37.0 Single live birth; Z30.2 Encounter for sterilization

== ENCOUNTER 2018-07-04 16:16 | Emergency (ER) | payer OTHER ==
[~2018-07-04] VITALS: Ht 170.2 cm; Wt 108.2 kg
[~2018-07-04 16:16] MED LIST changes: +CETI10TA PO; +COLA100C5 PO; +GLYB-147 PO; -GLYB5TA PO; +IBUP-1114 PO; +INSUDET SC; +NOVOINJ3 SC; +NOVOINJ3 SUBQ; +ONDA-227 PO; +OXYC1TAB23 PO; +SING10TA32 PO; -ZOFR8TAB PO; +ZYRTTAB8 PO
[2018-07-04 20:12] LABS: HEMATOCRIT 42.1 % (36.0-47.0); HEMOGLOBIN 13.8 g/dl (12.0-15.5); MEAN CORPUSCULAR HEMOGLOBIN 27.4 pg (27.0-33.0); MEAN CORPUSCULAR HGB CONC 32.8 g/dl (32.0-36.5); MEAN CORPUSCULAR VOLUME 83.5 fl (80.0-96.0); PLATELET COUNT, AUTOMATED 340 10^3/uL (150-450); RED BLOOD COUNT 5.04 10^6/uL (4.00-5.40); WHITE BLOOD COUNT 11.7 10^3/uL (4.0-10.0)
[2018-07-04 20:34] LABS: BLOOD UREA NITROGEN 14 MG/DL (7-18); CALCIUM LEVEL 9.6 MG/DL (8.5-10.1); CARBON DIOXIDE LEVEL 26 MEQ/L (21-32); CHLORIDE LEVEL 106 MEQ/L (98-107); CREATININE FOR GFR 0.99 MG/DL (0.55-1.30); GLOMERULAR FILTRATION RATE > 60.0 (>60); GLUCOSE, FASTING 147 MG/DL (70-100); HCG, SERUM QUANTITATIVE < 1.0 MIU/ML; POTASSIUM SERUM 4.3 MEQ/L (3.5-5.1); SODIUM LEVEL 140 MEQ/L (136-145)
--- NOTE | 2018-07-04 20:44 | REP ---
Clinical: Pelvic pain and vaginal bleeding Technique: Transabdominal pelvic ultrasound followed by transvaginal examination for better evaluation of the endometrium and adnexa with color Doppler evaluation of the ovaries. Findings: Bladder is normal and measures 9.7 x 12.6 x 7.1 cm. Anteverted uterus measures 8.5 x 6.6 x 4.4 cm. Endometrial complex measures 7 mm thickness. The bilateral ovaries are normal in appearance and vascularity without torsion. Right ovary measures 2.9 x 2.1 x 2.2 cm; RI 0.48. Left ovary measures 2.9 x 2.4 x 2.7 cm; RI 0.33. No pelvic fluid or adnexal mass lesion. Impression: Normal pelvic ultrasound. Electronically Signed by Jv Yao MD 07/04/2018 08:35 P
[2018-07-04 21:05] VITALS: BP 123/81
[2018-07-04 21:22] LABS: ATYPICAL LYMPH 5 % (0-5); EOSINOPHILS 5 % (0-5); LYMPHOCYTES 40 % (16-52); MONOCYTES 5 % (0-8); NEUTROPHILS 45 % (35-75)
[2018-07-04 21:23] LABS: PLATELET ESTIMATE NORMAL (NORMAL)
== END 2018-07-04 21:08 | disposition home or self-care (01) ==
LOC: M ED 16:16
DX: N93.8 Other specified abnormal uterine and vaginal bleeding (principal); Z79.899 Other long term (current) drug therapy

== ENCOUNTER 2018-11-04 20:29 | Emergency (ER) | payer OTHER ==
[~2018-11-04] VITALS: Ht 170.2 cm; Wt 110.2 kg
[2018-11-04] MEDS ORDERED: METF500T13 (20:34)
[2018-11-04] MEDS ORDERED: OMEP-221 (20:34)
[2018-11-04] MEDS ORDERED: PYRI1TAB5 PO (21:58)
[2018-11-04] MEDS ORDERED: BACT800T5 PO (21:58)
[2018-11-04] MEDS ORDERED: BACTRIM 160MG/800MG DS TAB PO ONE (22:00)
[2018-11-04] MEDS ORDERED: PHENAZOPYRIDINE 100 MG TAB PO ONE (22:00)
[2018-11-04 22:08] VITALS: BP 131/79
== END 2018-11-04 22:09 | disposition home or self-care (01) ==
LOC: M ED 20:29
DX: N30.90 Cystitis, unspecified without hematuria (principal); K21.9 Gastro-esophageal reflux disease without esophagitis; J45.909 Unspecified asthma, uncomplicated; R73.03 Prediabetes; Z79.899 Other long term (current) drug therapy; Z79.84 Long term (current) use of oral hypoglycemic drugs